=== PATIENT | male | born 1965 | race Caucasian/White ===

== ENCOUNTER 2019-02-21 03:13 | Emergency (ER) | payer OTHER ==
[2019-02-21 03:18] VITALS: PULSE 89; RESP 16
[2019-02-21] MEDS ORDERED: KETOROLAC TROMETHAMINE 30 MG/ML SOL IM ONE (03:31)
[2019-02-21] MEDS ORDERED: CYCLOBENZAPRINE 10 MG TAB PO ONE (03:32)
[2019-02-21] MEDS ORDERED: KETOROLAC TROMETHAMINE 30 MG/ML SOL ONE (03:33)
[2019-02-21] MEDS ORDERED: CYCLOBENZAPRINE 10 MG TAB ONE (03:33)
[2019-02-21 03:56] VITALS: BP 167/114; O2SAT 96
== END 2019-02-21 04:08 | disposition home or self-care (01) | DRG 563 ==
LOC: ED 03:13
DX: S46.912A Strain of unspecified muscle, fascia and tendon at shoulder and upper arm level, left arm, initial encounter (principal)
CPT/HCPCS: 96372; 99282; 99283; J1885; A9270-GY